=== PATIENT | female | born 1955 | race Caucasian/White ===

== ENCOUNTER 2016-07-10 20:27 | Observation (INO) | payer BC ==
[~2016-07-10 20:27] MED LIST: CIPRO500 M2 PO; FLAGYL500 M1 PO; NO HOME MEDICATION XX; NORCO 5/3251 TAB PO; ZOFRAN ODT4 MG PO
[2016-07-10] MEDS ORDERED: MOTRIN PM CAPL1 EAC1 PO (20:48)
[2016-07-10 21:02] LABS: BASO % 0.1 % (0-2); HCT-HEMATOCRIT 36.1 % (34.0-49.0); HGB-HEMOGLOBIN 12.3 gm/dl (12.0-15.5); IMMATURE GRANULOCYTES ABSOLUTE 0.15 tho/cmm (0-0.03); IMMATURE GRANULOCYTES PERCENT 0.5 % (0-0.3); LYMPH ABSOLUTE COUNT 0.9 tho/cmm (0.8-4.5); MCH (MEAN CORPUSCULAR HGB) 31.7 pg (28.0-32.0); MCHC MEAN CORPUSCULAR HGB CONC 34.1 % (32.0-36.0); MEAN PLATELET VOLUME 9.3 cmc (9.4-12.4); MONO % 2.8 % (0-12); MONOCYTE ABSOLUTE COUNT 0.8 tho/cmm (0.0-1.2); NEUTROPHIL ABSOLUTE COUNT 26.6 tho/cmm (1.6-8.0); NEUTROPHIL-AUTOMATED 26.6 tho/cmm (1.6-8.0); NEUTROPHILS % 93.6 % (40-80); PLATELET COUNT 426 tho/cmm (150-450); RED BLOOD COUNT 3.88 mil/cmm (4.00-5.20); RED CELL DISTRIBUTION WIDTH 12.6 % (12.4-16.4); WHITE BLOOD COUNT 28.4 tho/cmm (4.0-10.0)
[2016-07-10 21:27] LABS: ALB/GLOB RATIO 0.7 (0.8-2.0); ALBUMIN 3.3 g/dl (3.5-5.0); ALKALINE PHOSPHATASE 75 U/L (33-138); ALT/SGPT 24 U/L (12-78); ANION GAP 13 mmol/L (0-20); AST/SGOT 29 U/L (10-40); BILIRUBIN,TOTAL 0.4 mg/dl (0-1.5); BLOOD UREA NITROGEN 10 mg/dl (6-24); CALCIUM 8.4 mg/dl (8.5-10.5); CARBON DIOXIDE-VENOUS 23 mmol/L (22-32); CHLORIDE 101 mmol/l (96-110); CREATININE 0.93 mg/dl (0.50-1.10); GLUCOSE 120 mg/dL (70-110); SODIUM 133 mmol/L (135-145); eGFR VALUE FOR BLACK 78 mL/Min
[2016-07-10 21:42] LABS: URINE BILIRUBIN NEGATIVE (NEG); URINE BLOOD NEGATIVE (NEG); URINE GLUCOSE (UA) NEGATIVE (NEG); URINE KETONE SMALL (NEG); URINE LEUKOCYTE ESTERASE POSITIVE (NEG); URINE NITRITE NEGATIVE (NEG); URINE PH 6.5 (5.0-8.0); URINE PROTEIN SMALL (NEG); URINE SPECIFIC GRAVITY 1.005 (1.003-1.030)
[2016-07-10 21:48] LABS: URINE APPEARANCE CLEAR; URINE COLOR YELLOW
[2016-07-10 21:51] LABS: URINE RBC 0 /[HPF] (0-5)
[2016-07-10 22:01] LABS: PROCALCITONIN 0.18 ng/ml (0.05-0.09)
[2016-07-11] MEDS ORDERED: VIVELLE-DOT1 EAC2 TOP (01:17)
[2016-07-11 05:25] LABS: BASO % 0.1 % (0-2); HCT-HEMATOCRIT 31.6 % (34.0-49.0); HGB-HEMOGLOBIN 10.7 gm/dl (12.0-15.5); IMMATURE GRANULOCYTES ABSOLUTE 0.13 tho/cmm (0-0.03); IMMATURE GRANULOCYTES PERCENT 0.5 % (0-0.3); LYMPH % 3.4 % (20-45); MCH (MEAN CORPUSCULAR HGB) 31.6 pg (28.0-32.0); MCHC MEAN CORPUSCULAR HGB CONC 33.9 % (32.0-36.0); MCV (MEAN CELL VOLUME) 93.2 fl (82.0-96.0); MEAN PLATELET VOLUME 9.1 cmc (9.4-12.4); MONO % 3.9 % (0-12); MONOCYTE ABSOLUTE COUNT 1.1 tho/cmm (0.0-1.2); NEUTROPHIL ABSOLUTE COUNT 26.5 tho/cmm (1.6-8.0); NEUTROPHIL-AUTOMATED 26.5 tho/cmm (1.6-8.0); NEUTROPHILS % 92.1 % (40-80); PLATELET COUNT 363 tho/cmm (150-450); RED BLOOD COUNT 3.39 mil/cmm (4.00-5.20); RED CELL DISTRIBUTION WIDTH 12.8 % (12.4-16.4); WHITE BLOOD COUNT 28.8 tho/cmm (4.0-10.0)
[2016-07-11 05:52] LABS: ALB/GLOB RATIO 0.7 (0.8-2.0); ALBUMIN 2.5 g/dl (3.5-5.0); ALKALINE PHOSPHATASE 64 U/L (33-138); ALT/SGPT 17 U/L (12-78); ANION GAP 11 mmol/L (0-20); AST/SGOT 13 U/L (10-40); BILIRUBIN,TOTAL 0.4 mg/dl (0-1.5); BLOOD UREA NITROGEN 9 mg/dl (6-24); CALCIUM 7.2 mg/dl (8.5-10.5); CARBON DIOXIDE-VENOUS 25 mmol/L (22-32); CHLORIDE 105 mmol/l (96-110); CREATININE 0.89 mg/dl (0.50-1.10); GLUCOSE 118 mg/dL (70-110); POTASSIUM 3.5 mmol/L (3.7-5.1); SODIUM 137 mmol/L (135-145); eGFR VALUE FOR BLACK 82 mL/Min
[2016-07-11] MEDS ORDERED: THERAPEUTIC M1 EAC3 PO (10:37)
[2016-07-11] MEDS ORDERED: SERTRALINE HCL50 M4 PO (10:38)
[2016-07-11] MEDS ORDERED: TAMIFLU75 M1 PO (13:15)
[2016-07-11] MEDS ORDERED: TYLENOL325 M2 PO (13:18)
[2016-07-11] MEDS ORDERED: LOMOTIL 2.5-0.1 EACH PO (13:22)
[2016-07-11] MEDS ORDERED: ACIDOPHILUS1 EAC5 PO (13:23)
[2016-07-11] MEDS ORDERED: COUGH SYRU100 MG/51 PO (13:31)
[2016-07-11] MEDS ORDERED: COUGH SYRUP PO (15:30)
--- NOTE | 2016-07-11 16:25 | NUR ---
VIRUTAL CARE NOTE: PT RESTING ON BED, READY FOR DISCHARGE INSTRUCTIONS. INFORMATON GIVEN TO PT, PT DENIES QUESTONS OR CONCENRS. INFORMED FLOOR NURSE DISCHARGE TEACHING ALL DONE.
== END 2016-07-11 17:42 ==
LOC: EDMED 20:27 → EMR2 23:56 → 5WD 07-11 00:25
PROVIDERS: Emergency Medicine; ADMIT Internal Medicine
DX: J09.X2 Influenza due to identified novel influenza A virus with other respiratory manifestations (principal); D72.829 Elevated white blood cell count, unspecified; E78.5 Hyperlipidemia, unspecified; F32.9 Major depressive disorder, single episode, unspecified; N95.9 Unspecified menopausal and perimenopausal disorder; Z88.2 Allergy status to sulfonamides; M79.1 Myalgia; Z86.39 Personal history of other endocrine, nutritional and metabolic disease
CPT/HCPCS: G0378; J2543; J7030; P9612